=== PATIENT | male | born 1960 | race Caucasian/White ===

== ENCOUNTER → 2018-03-07 | Outpatient (CLI) | payer OTHER | LOC: BHFA 13:00 | PROVIDERS: ATTEND Internal Medicine Interventional Cardiology | DX: R94.31 Abnormal electrocardiogram [ECG] [EKG] (principal); I25.10 Atherosclerotic heart disease of native coronary artery without angina pectoris | CPT/HCPCS: 78452; 93017; A9500 ==

== ENCOUNTER 2018-06-08 17:50 | Emergency (ER) | payer OTHER ==
--- NOTE | 2018-06-08 18:20 | CPEKG ---
Heart Rate: 72 RR Interval: 833 P-R Interval: 180 QRSD Interval: 100 QT Interval: 376 QTC Interval: 412 P [place]: 49 QRS [place]: -6 T Wave [place]: 41 EKG Severity - NORMAL ECG - EKG Impression: SINUS RHYTHM Electronically Signed By: Neena Gaona 08-Jun-2018 23:18:31
[2018-06-08] MEDS ORDERED: NS 500 ML IV ONE (18:32)
--- NOTE | 2018-06-08 18:44 | EDPHY ---
H & P Time Seen by Provider: 06/08/18 18:04 HPI/ROS: HPI Shortness of breath. 58-year-old male by private vehicle. This patient has a history of HIV and related complications. He reports that he took a trip to [place] about a week ago. He returned on Sunday. He reports he had been in the car for quite awhile. He reports that he is reasonably physically fit and bikes 3 to 4 times a week. He usually plays volleyball on Saturdays. He was playing volleyball today felt unusually short of breath. He is concerned about a possible blood clot in his lung. He also describes having a pressure-like sensation in his lower sternal, epigastric area. He has had this for months. He is concerned that this might be lymphoma. ROS: Constitutional: No fever, no chills. No weakness. Eyes: No discharge. No changes in vision. ENT: No sore throat. No nasal congestion or rhinorrhea. Respiratory: No cough. As above. Cardiac: No chest pain, no palpitations. As above. Gastrointestinal: No abdominal pain, no vomiting, no diarrhea. Genitourinary: No hematuria. No dysuria or increased frequency with urination. Musculoskeletal: No back pain. No neck pain. No myalgias or arthralgias. Skin: No rashes. Neurological: No headache. No focal weakness or altered sensation. 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 Viral loads have been undetectable for some time. Kidney stones, orthopedic surgeries, GERD, hyperlipidemia, hypothyroid, depression. He had a coronary angiogram done about 2 and half to 3 years ago which was clean. Social history: Nonsmoker. Here by himself. No alcohol. As above. Physical Exam: General Appearance: Alert, no distress. This patient is responding to questions appropriately and in full sentences. This patient appears well- hydrated and well-nourished. Eyes: Pupils equal and round no pallor or injection. No lid edema, erythema or injection. Respiratory: There are no retractions, lungs are clear to auscultation with good air movement bilaterally. Cardiovascular: Regular rate and rhythm. No murmur. Gastrointestinal: Abdomen is soft and nontender, no masses on deep palpation of his upper abdomen, bowel sounds normal. No focal tenderness at McBurney's point. No Hester sign. Neurological: Motor sensory function is grossly intact. Cranial nerves are normal. Gait is normal. Skin: Warm and dry, no rashes. Musculoskeletal: Neck is supple and nontender. Extremities are symmetrical. All joints range without pain or impingement. Psychiatric: No agitation. No depression. Database: EKG: EKG time is 6:18 p.m.; EKG shows a narrow complex normal sinus rhythm with a ventricular rate of 72. The NC, QRS, QT intervals are within normal limits. There are no ST-T wave changes indicative of ischemic or injury pattern. No evidence of right heart strain. Interpreted by me. Imaging: Chest x-ray PA and lateral; the cardiac mediastinal silhouette is unremarkable. No evidence of infiltrate or pneumothorax. No acute cardiopulmonary disease process noted. Interpreted by me. Procedures: Emergency department course: Vital signs reviewed. Pulse oximetry on room air 92%. Vital signs unremarkable. IV placed. He was started on IV normal saline with 500 cc to be given over the next hour. EKG obtained and reviewed by myself. 8:00 p.m., patient re-evaluated. Resting comfortably at this time. Review as vital signs. They are unremarkable. He is 94% on room air pulse oximetry. I discussed the results of his emergency department workup. All are reassuring. He stated that he was still concerned about this feeling of a lump in his epigastric area on the possibility of a mass. I suggested that we get a CT scan of his abdomen and pelvis without contrast. He declines the study at this time. He states he has a follow-up appointment with his primary care physician on Sunday and he will take it up without physician at that time. He feels comfortable going home now and he is requesting discharge. I discussed admitting him for observation overnight but he does not want to do this. He states that he can easily return to the emergency department if needed. He understands the risks of being discharged. The patient competently engages in shared decision making. They demonstrate capacitance to make decisions. Return to emergency department precautions were thoroughly reviewed with him. All of his questions were answered. He was discharged in good condition. Differential Diagnosis: The differential diagnosis on this patient includes but is not limited to pulmonary embolism, lymphoma, anxiety reaction, acute coronary syndrome, CHF, pneumothorax. This represents a partial list of diagnoses considered. These considerations are based on history, physical exam, past history, reassessment and diagnostic testing. 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 NSAIDS (Non-Steroidal Anti-Inflamma Allergy (Verified 06/08/18 17:55) Other-Enter Comments Home Medications: Medication Instructions Recorded Aspirin [Aspirin 81mg (*)] 81 mg PO DAILY@119912/22/12 Atorvastatin Calcium [Lipitor 40 40 mg PO DAILY@12/22/12 mg (*)] Darunavir Ethanolate [PREZISTA] 800 mg PO DAILY@12/22/12 Fenofibrate [Tricor 145 mg (*)] 145 mg PO DAILY@12/22/12 Levothyroxine Sodium [Levothroid] 50 mcg PO DAILY@0300 12/22/12 Multivitamins [Multivitamin (*)] 1 each PO DAILY@119912/22/12 Potter-3 Ethyl Est-Lovaza [Lovaza 1 2 gm PO BID 12/22/12 gm (*)] Pantoprazole Sodium 20 mg PO DAILY@119912/22/12 Ritonavir [Norvir] 100 mg PO DAILY@12/22/12 Sertraline HCl [Zoloft 100mg (*)] 250 mg PO DAILY 12/22/12 Ubidecarenone [Co Q-10 200 mg] 200 mg PO 1200 12/22/12 Lisinopril 06/08/18 Neurontin 06/08/18 Tivicay 06/08/18 Medical Decision Making - Diagnostics Imaging Results: Imaging Impressions Chest X-Ray 06/08/18 18:33 Impression: No acute findings in the chest. - Data Points Laboratory Results: Laboratory Results 06/08/18 18:20 06/08/18 18:20 06/08/18 06/08/18 06/08/18 18:48 18:20 18:20 WBC RBC Hgb Hct MCV MCH MCHC RDW Plt Count MPV Neut % (Auto) Lymph % (Auto) [place] % (Auto) Eos % (Auto) Baso % (Auto) Nucleat RBC Rel Count Absolute Neuts (auto) Absolute Lymphs (auto) Absolute Monos (auto) Absolute Eos (auto) Absolute Basos (auto) Absolute Nucleated RBC Immature Gran % Immature Gran # D-Dimer < 0.27 ug/mLFEU ug/mLFEU (0.00-0.50) Sodium 139 mEq/L mEq/L (135-145) Potassium 4.5 mEq/L mEq/L (3.3-5.0) Chloride 108 mEq/L mEq/L (97-110) Carbon Dioxide 21 mEq/l L mEq/l (22-31) Anion Gap 10 mEq/L mEq/L (8-16) BUN 31 mg/dL H mg/dL (7-23) Creatinine 2.9 mg/dL H mg/dL (0.7-1.3) Estimated GFR 23 Glucose 82 mg/dL mg/dL (70-100) Calcium 10.4 mg/dL mg/dL (8.5-10.4) POC Troponin I 0.01 ng/mL ng/mL (0.00-0.08) NT-Pro-B Natriuret Pep 85 pg/mL pg/mL (0-125) 06/08/18 18:20 WBC 9.97 10^3/uL H 10^3/uL (3.80-9.50) RBC 4.58 10^6/uL 10^6/uL (4.40-6.38) Hgb 14.7 g/dL g/dL (13.7-17.5) Hct 43.0 % % (40.0-51.0) MCV 93.9 fL fL (81.5-99.8) MCH 32.1 pg pg (27.9-34.1) MCHC 34.2 g/dL g/dL (32.4-36.7) RDW 12.8 % % (11.5-15.2) Plt Count 230 10^3/uL 10^3/uL (150-400) MPV 11.1 fL fL (8.7-11.7) Neut % (Auto) 69.4 % % (39.3-74.2) Lymph % (Auto) 19.0 % % (15.0-45.0) [place] % (Auto) 8.9 % % (4.5-13.0) Eos % (Auto) 1.4 % % (0.6-7.6) Baso % (Auto) 0.8 % % (0.3-1.7) Nucleat RBC Rel Count 0.0 % % (0.0-0.2) Absolute Neuts (auto) 6.92 10^3/uL H 10^3/uL (1.70-6.50) Absolute Lymphs (auto) 1.89 10^3/uL 10^3/uL (1.00-3.00) Absolute Monos (auto) 0.89 10^3/uL H 10^3/uL (0.30-0.80) Absolute Eos (auto) 0.14 10^3/uL 10^3/uL (0.03-0.40) Absolute Basos (auto) 0.08 10^3/uL 10^3/uL (0.02-0.10) Absolute Nucleated RBC 0.00 10^3/uL 10^3/uL (0-0.01) Immature Gran % 0.5 % % (0.0-1.1) Immature Gran # 0.05 10^3/uL 10^3/uL (0.00-0.10) D-Dimer Sodium Potassium Chloride Carbon Dioxide Anion Gap BUN Creatinine Estimated GFR Glucose Calcium POC Troponin I NT-Pro-B Natriuret Pep Medications Given: Discontinued Medications Sodium Chloride (Ns) 500 mls @ 1,000 mls/hr IV EDNOW ONE PRN Reason: Protocol Stop: 06/08/18 19:01 Last Admin: 06/08/18 18:53 Dose: 500 mls Point of Care Test Results: Chemistry 06/08/18 18:48 POC Troponin I 0.01 ng/mL ng/mL (0.00-0.08) Departure - Departure Disposition: Home, Routine, Self-Care Clinical Impression: Dyspnea Condition: Good Instructions: Dyspnea (ED) Additional Instructions: Read and follow provided instructions. Follow-up with your primary care physician as scheduled on Sunday. Avoid strenuous activity until you have been cleared by her primary care physician. Take your medication as prescribed. Return to the emergency department for worsening symptoms, shortness of breath, chest pain or other serious concerns. Referrals: Sulema Miranda NP [Primary Care Provider] - As per Instructions
[2018-06-08 18:46] LABS: PLATELET COUNT 230 10^3/uL (150-400)
[2018-06-08 20:48] VITALS: BP 119/81
== END 2018-06-08 20:51 | disposition home or self-care (01) ==
DX: R06.00 Dyspnea, unspecified (principal); E86.9 Volume depletion, unspecified; B20 Human immunodeficiency virus [HIV] disease; Z79.82 Long term (current) use of aspirin
CPT/HCPCS: 84484-PO